=== PATIENT | male | born 1980 | race Caucasian/White ===

== ENCOUNTER 2016-10-11 21:04 | Emergency (ER) | payer BC, OTHER ==
[2016-10-11] MEDS ORDERED: Albuterol/Ipratropium NEB.SOL* Albuterol 2.5 MG/Ipratropium 0.5 MG 3 ML INH ONE (22:18)
--- NOTE | 2016-10-11 22:45 | ED ---
Asthma - HPI Summary HPI Summary: 36 male presents with complaints of needing an inhaler after having a few asthma attacks over the past couple of weeks, including one today just [employer]. Patient is allergic to cats and exacerbates his asthma. He was around cats today and experienced SOB and wheezing. Patients symptoms improved once he removed himself from trigger. He still feels slightly SOB. He is in the process of getting a new PCP once new insurance kicks in. Admits to some tightness in his chest. No chest pain. No cough or congestion symptoms. PMHx asthma. - History of Current Complaint Chief Complaint: EDAsthma Stated Complaint: ASTHMA ATTACK Time Seen by Provider: 10/11/16 21:23 Hx Obtained From: Patient Onset/Duration: Sudden Onset, Lasting Minutes, Still Present, Resolved - somewhat resolved Timing: Intermittent Episode Lasting - minutes Initial Severity: Moderate Current Severity: Mild Pain Intensity: 0 Pain Scale Used: 0-10 Numeric Location/Character: Wheezing Aggravating Symptoms: Exertion, Allergens Alleviating Symptoms: Rest Associated Signs and Symptoms: Positive: Shortness of Breath. Negative: Calf Pain, Edema, URI, Sinus Infection Related History: Similar Episode/Dx as - 2 weeks ago and previous asthma exacerbations. - Allergy/Home Medications Allergies/Adverse Reactions: Allergies Allergy/AdvReac Type Severity Reaction Status Date / Time No Known Allergies Allergy Verified 10/11/16 21:10 PMH/Surg Hx/FS Hx/Imm Hx Endocrine/Hematology History: Denies: Hx Anticoagulant Therapy, Hx Diabetes Cardiovascular History: Denies: Hx Hypertension, Hx Pacemaker/ICD Respiratory History: Reports: Hx Asthma Denies: Hx Chronic Obstructive Pulmonary Disease (COPD) History: Denies: Hx Renal Disease Neurological History: Denies: Hx Dementia - Surgical History Surgery Procedure, Year, and Place: none - Immunization History Immunizations Up to Date: Yes Infectious Disease History: No Infectious Disease History: Denies: Hx Human Immunodeficiency Virus (HIV), Traveled Outside the [place] in Last 30 Days - Family History Known Family History: Positive: None - Social History Alcohol Use: Rare Substance Use Type: Reports: None Smoking Status (MU): Current Every Day Smoker Review of Systems Constitutional: Negative ENT: Negative Cardiovascular: Negative Positive: Shortness Of Breath Gastrointestinal: Negative Musculoskeletal: Negative Neurological: Negative All Other Systems Reviewed And Are Negative: Yes Physical Exam Triage Information Reviewed: Yes Vital Signs On Initial Exam: Initial Vitals Temp Pulse Resp BP Pulse Ox 98.2 F 92 14 187/97 98 10/11/16 21:08 10/11/16 21:08 10/11/16 21:08 10/11/16 21:08 10/11/16 21:08 BP elevated. discussed importance of follow up with PCP. re-checked to be 162/ 95 before d/c. Vital Signs Reviewed: Yes Appearance: Positive: Well-Appearing, No Pain Distress, Well-Nourished, Obese Skin: Positive: Warm, Skin Color Reflects Adequate Perfusion, Dry. Negative: Cyanosis @, Pale Head/Face: Positive: Normal Head/Face Inspection Eyes: Positive: Normal, Conjunctiva Clear ENT: Positive: Normal ENT inspection, Hearing grossly normal, Pharynx normal, TMs normal. Negative: Nasal congestion, Nasal drainage Neck: Positive: Supple, Nontender, No Lymphadenopathy Respiratory/Lung Sounds: Positive: Clear to Auscultation, Breath Sounds Present , Wheezes - throughout, mild. better after duoneb. Negative: Rales, Rhonchi, Stridor, Unable to speak in full sentences, Fatigue Cardiovascular: Positive: Normal, RRR, Pulses are Symmetrical in both Upper and Lower Extremities - 2+, cap refill <2 seconds. Negative: Leg Edema Left, Leg Edema Right Abdomen Description: Positive: Nontender, No Organomegaly, Soft Bowel Sounds: Positive: Present Musculoskeletal: Positive: Normal, Strength/ROM Intact Neurological: Positive: Normal, Sensory/Motor Intact, Alert, Oriented to Person Place, Time Psychiatric: Positive: Normal AVPU Assessment: Alert Diagnostics - Vital Signs Vital Signs Temp Pulse Resp BP Pulse Ox 10/11/16 21:08 98.2 F 92 14 187/97 98 - Laboratory Lab Statement: Any lab studies that have been ordered have been reviewed, and results considered in the medical decision making process. - Radiology x-ray Xray Interpretation: Positive (See Comments) - findings consistent with COPD, no acute findings. Radiology Interpretation Completed By: Radiologist - EKG EKG Cardiac Rate: NL EKG Rhythm: Sinus Rhythm ST Segment: Normal Ectopy: None EKG Comparison: No Significant Change Re-Evaluation - Re-Evaluation First Eval Re-Evaluation Time: 22:40 Change: Improved - had significant relief after duoneb. Asthma Course/Dx - Course Course Of Treatment: EKG and chest x-ray obtained and showed findings of COPD. no acute findings. EKG NSR. Patient educated on COPD. given duoneb had significant relief. wheezing had significantly improved after duoneb. O2 sat 98- 100% RA. Walked around and went to 96% O2. Given inhaler to take home with him. Follow up with PCP to discuss findings and HTN. Aware of worsening signs and symptoms to watch out for. - Diagnoses Differential Diagnosis/HQI/PQRI: Positive: Acute Asthma, Bronchitis, COPD Excerbation, Pneumonia, Other Provider Diagnoses: Asthma exacerbation, Wheezing Discharge - Discharge Plan Condition: Stable Disposition: HOME Prescriptions: RX: Albuterol HFA INHALER* [Ventolin HFA Inhaler*] 1 - 2 puff INH Q4H PRN #1 mdi PRN Reason: Sob/Wheezing Patient Education Materials: Asthma (ED), Wheezing (ED) Referrals: Gillian Burden [employer] [Primary Care Provider] - Additional Instructions: Use inhaler as directed daily as needed for shortness of breath/wheezing. Stay away from triggers as much as possible to avoid asthma flare ups. Make an appointment with primary care provider for follow up and annual check up. Strongly recommend follow up within 7 days to re-check elevated blood pressure. If symptoms persist or worsen please return promptly.
[2016-10-11] MEDS ORDERED: Albuterol HFA INHALER* 8 gm MDI INH PRN (22:50)
--- NOTE | 2016-10-11 23:04 | RAD ---
INDICATION: Chest tightness and asthma. COMPARISON: Comparison is made with a prior study from [facility] 2007. TECHNIQUE: Dual-energy PA and lateral views of the chest were obtained. FINDINGS: The heart is within normal limits in size. Mediastinal and hilar contours appear within normal limits. The lungs are hyperinflated and clear. There is flattening of the diaphragms. No pleural effusion is seen. IMPRESSION: FINDINGS CONSISTENT WITH COPD, NO EVIDENCE FOR ACUTE FINDING.
[2016-10-11 23:55] VITALS: BP 162/95
== END 2016-10-11 23:55 | disposition home or self-care (01) ==
LOC: ED 21:04
DX: J45.901 Unspecified asthma with (acute) exacerbation (principal); R06.02 Shortness of breath
CPT/HCPCS: 71020; 93005; 94640; 94760; 99282; A9270-GY